=== PATIENT | male | born 1990 | race Caucasian/White ===

== ENCOUNTER 2020-07-21 09:40 | Outpatient (REF) | payer OTHER, SELFPAY | END 2020-07-21 09:41 | disposition home or self-care (01) | LOC: HO.LAB 09:40 | PROVIDERS: PCP Internal Medicine Medical Oncology; Visit Provider Internal Medicine | DX: Z20.822 Contact with and (suspected) exposure to COVID-19 (principal) | CPT/HCPCS: 36415; C9803; U0003 ==

== ENCOUNTER → 2020-07-28 10:18 | Outpatient (BNVA) | payer OTHER, SELFPAY | PROVIDERS: Visit Provider Physician Assistant ==

== ENCOUNTER 2020-08-18 06:05 | Day surgery (SDC) | payer OTHER, SELFPAY ==
[2020-08-16 14:28] VITALS: BMI 23.7
--- NOTE | 2020-08-17 10:22 | HO.ANESPROP2 ---
Documented by User: Padmini Ophelia 08/17/20 10:24 HPI - Anesthesia Eval Consult details Narrative: 30yo M for Left Removal Orthopedic Hardware,clavical PMFSH Active Problems Active Problems: All Active Problems (Updated 08/16/20 @ 14:27 by Sharlene Baeza) Failed hardware (Acute) Past Medical History Medical History Asthma History of blood transfusion History of chemotherapy Hx of head injury Hx of therapeutic radiation Testicular cancer Family History Family History Mother No problems noted. 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 Meds Allergies Allergy/AdvReac Type Severity Reaction Status Date / Time morphine Allergy Severe Difficulty Verified 08/16/20 14:28 Breathing Exam Airway Mallampati Class: II TM Dist: >3cm Neck ROM: Full Loose/Missing/Broken Teeth: No Heart: RRR Lungs: NL Assessment and Plan Assessment Anesthesia Assessment: Anesthesia Plan Discussed and Chart Reviewed Final Anesthetic Review NPO: Yes ASA Class: II Final Preanesthetic Review: No Changes in Pt Med Stat, Meds/Allgs Chart Reviewed, Consent Obtained/Reviewed and Anes Risks/Benef Reviewed Patient Risk: Low Procedure Risk: Low Anesthetic Plan Anesthetic Plan: GA Disposition: Standard PACU
[2020-08-18] VITALS (8 sets, daily range): BP systolic 121–151; BP diastolic 70–94; PULSE 62–81; RESP 16–18; TEMP 36.2–37.1; O2SAT 96–99
--- NOTE | ~2020-08-18 | XR_ITS ---
EXAMINATION: XR SHOULDER, LEFT CLINICAL INFORMATION: Retained hardware left clavicle. COMPARISON: Left clavicular radiographs 01/01/2020 TECHNIQUE: AP and oblique transscapular radiographs of the left clavicle. 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 A fixation plate spans the superior margin of the clavicle with 3 cortical screws transfixing the medial segment of the clavicle and 3 distal screws demonstrating no contact with the distal clavicle grossly unchanged in overall configuration compared with 01/01/2020. Interval maturation of callus formation is noted in association with the clavicular deformity. Partial visualization is made of external overlying artifacts projected over the thorax. The visualized left lung and visualized cardiomediastinal silhouette are normal in appearance. XR/XR shoulder LT min 2V IMPRESSION: Left clavicular posttraumatic deformity with partially unanchored plate and screw fixation unchanged in configuration compared with 01/01/2020 aside from interval maturation of callus formation of the left clavicle.
[2020-08-18] MEDS: Lactated Ringers 1,000 ML 100 ML IVCONT (06:57)
--- NOTE | 2020-08-18 07:39 | MHC.SHP ---
Pre-Procedural Eval Section A The patient is an INPATIENT: No Changes since office visit: No Cold of Flu in the past 2 weeks, No New Medical Problems, No Changes in Medication and No Patient answered all questions The History & Physical has been completed within 30 days and I have reviewed it.: Yes Section B Chief Complaint: hardware removal Allergies: Allergies Allergy/AdvReac Type Severity Reaction Status Date / Time morphine Allergy Severe Difficulty Verified 08/16/20 14:28 Breathing Plan I have reviewed the history and physical and performed a pertinent physical examination on my patient. No changes have occurred unless specified.
--- NOTE | 2020-08-18 08:23 | P.PCNOP_ITS ---
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
--- NOTE | 2020-08-18 10:37 | P.OP_ITS ---
Operative Note Operative Note Date of Service: 08/18/20 Narrative: OPERATIVE PROCEDURE NOTE PREOP DIAGNOSIS: {retained hardware left clavicle } POSTOP DIAGNOSIS: {same } OPERATIVE PROCEDURE: {removal of hardware left clavicle } SURGEON: Dr. Rivera (Britt) [employer] RELIGIOUS EDUCATION DIRECTOR: KAREN GARCIA [facility] CLINICAL NOTE: {this gentleman underwent an open reduction internal fixation of his left clavicle last year. He subsequently had loosening of the hardware though the fracture to completely heal. Because it was now subcutaneous as well as somewhat uncomfortable after explaining the risks benefits and alternatives and answering all his questions it was mutually agreed upon to carry following procedure } OPERATIVE PROCEDURE {Under a general anesthetic patient placed initially supine on the operating table. They were subsequently placed in the beach chair position. The left shoulder was then prepped and draped in standard fashion with the left arm free. Surgical time-out was then performed patient's identified procedure confirmed site confirmed analogy history reviewed preoperative antibiotics given standard DVT prophylaxis in place all items discussed upon. An incision was made along the length of the plate. This was taken down through subcutaneous tissue with hemostasis achieved along the way using electrocautery. Soft tissues then elevated both anteriorly and posteriorly off the plate. On the lateral side the 3 screws were successfully removed. Following this the 3 screws on the medial side were successfully removed. The plate was then taken off the bone. This screw holes were then all debrided. The clavicle itself was inspected. It was solidly healed. Therefore we proceeded to closure. The wound was thoroughly irrigated. The skin was approximated using interrupted 3-0 Dexon. The skin was closed with brinda. Steri-Strips and sterile dressing were then applied. The patient's anesthesia was then reversed. They were transferred supine to the room bed then taken to the recovery room in good condition. Intraoperatively there was approximately 10 cc of blood loss. No intraop transfusions or complications. }
--- NOTE | 2020-08-18 11:03 | HO.POSTANES ---
Post Anesthesia Evaluation Post Anesthesia Evaluation Vital Signs: Vital Signs Temp Pulse Resp BP Pulse Ox 08/18/20 09:40 97.2 F 62 17 121/70 99 08/18/20 09:25 97.2 F 76 17 122/71 97 08/18/20 09:10 74 17 134/89 96 08/18/20 08:55 70 17 134/89 97 08/18/20 08:50 78 18 151/92 H 97 08/18/20 08:45 74 16 138/94 H 97 08/18/20 08:40 97.3 F 81 16 138/88 99 08/18/20 06:27 98.7 F 79 16 138/84 99 Anesthesia: General LMA Mental Status: Awake Pain Control: Satisfactory Nausea/Vomiting: None Hydration: Adequate Anesthesia-Related Issues: No Anes. Related Issues
== END 2020-08-18 10:20 | disposition home or self-care (01) ==
PROVIDERS: PCP Internal Medicine Medical Oncology; Visit Provider Orthopaedic Surgery
PROC: (CPT 20680; principal; 2020-08-18 07:30)
DX: T84.84XA Pain due to internal orthopedic prosthetic devices, implants and grafts, initial encounter (principal); M25.512 Pain in left shoulder; G89.18 Other acute postprocedural pain; Y83.8 Other surgical procedures as the cause of abnormal reaction of the patient, or of later complication, without mention of misadventure at the time of the procedure; Y92.9 Unspecified place or not applicable
CPT/HCPCS: 20680; 73030; J0131; J1100; J1170; J2250; J2405

== ENCOUNTER 2020-08-29 11:34 | Outpatient (REF) | payer OTHER, SELFPAY | END 2020-08-29 11:35 | disposition home or self-care (01) | LOC: HO.HOSX 11:34 | PROVIDERS: Visit Provider Physician Assistant | DX: Z13.89 Encounter for screening for other disorder (principal) ==

== ENCOUNTER 2020-08-30 08:23 | Outpatient (REF) | payer OTHER, SELFPAY ==
--- NOTE | ~2020-08-30 | XR_ITS ---
EXAMINATION: XR CLAVICLE, LEFT CLINICAL INFORMATION: Other specified postprocedural states. COMPARISON: 08/18/2020 TECHNIQUE: Two views of the left clavicle. FINDINGS: There are skin brinda along the superior aspect of the clavicle. The previously seen fixation plate and cortical screws have been removed. Screw tracks noted in the underlying clavicle. Redemonstrated is dysmorphic appearance with solid bridging callus along the midportion of the left clavicle. XR/XR clavicle LT IMPRESSION: Interval removal of left clavicular hardware. Stable left clavicular posttraumatic deformity.
== END 2020-08-30 08:24 | disposition home or self-care (01) ==
LOC: HO.XRAY 08:23
PROVIDERS: PCP Internal Medicine Medical Oncology; Visit Provider Physician Assistant
DX: Z98.890 Other specified postprocedural states (principal)
CPT/HCPCS: 73000